=== PATIENT | female | born 1960 | race Caucasian/White ===

== ENCOUNTER 2020-09-27 20:24 | Emergency (ER) | payer OTHER ==
[2020-09-27] MEDS ORDERED: PRAVACHOL 20MG20 MG PO (20:48)
[2020-09-27 22:00] VITALS: BP 120/74
== END 2020-09-27 22:02 | disposition home or self-care (01) ==
LOC: ED 20:24
DX: S61.211A Laceration without foreign body of left index finger without damage to nail, initial encounter (principal); W26.0XXA Contact with knife, initial encounter; Y92.009 Unspecified place in unspecified non-institutional (private) residence as the place of occurrence of the external cause
CPT/HCPCS: 90715

== ENCOUNTER → 2020-12-22 | Outpatient (CLI) | payer OTHER ==
[~2020-12-22] MED LIST: PRAVACHOL 20MG20 MG PO
[2020-12-22 08:01] LABS: BASO # 0.02 (0.02-0.10); EOS # 0.19 (0.04-0.40); EOS % 3.2 % (1.0-5.0); HEMATOCRIT 41.3 % (37.0-47.0); HEMOGLOBIN 13.5 g/dL (12.5-16.0); MEAN CELL VOLUME 91 fl (78-100); MEAN CORPUSCULAR HEMOGLOBIN 30 pg (27-31); MEAN CORPUSCULAR HGB CONC 33 g/dL (33-37); MEAN PLATELET VOLUME 9.7 fl (7.4-10.4); MONO # 0.54 (0.20-0.80); NEU # 2.41 (1.40-6.50); PLATELET COUNT 226 K/mm3 (130-400); RED BLOOD COUNT 4.53 M/mm3 (4.10-5.30)
[2020-12-22 10:11] LABS: POTASSIUM 4.4 mmol/L (3.5-5.1)
[2020-12-22 10:12] LABS: ALBUMIN 4.1 g/dL (3.4-4.8)
[2020-12-22 10:13] LABS: CALCIUM 9.7 mg/dL (8.3-10.5)
[2020-12-22 10:14] LABS: TOTAL PROTEIN 7.1 g/dL (6.2-8.1)
[2020-12-22 10:16] LABS: TOTAL BILIRUBIN 0.7 mg/dL (0.2-1.2)
== END ==
LOC: LAB 06:21
PROVIDERS: Physician Assistant
DX: Z00.00 Encounter for general adult medical examination without abnormal findings (principal); E78.5 Hyperlipidemia, unspecified

== ENCOUNTER → 2021-10-11 | Outpatient (CLI) | payer OTHER | LOC: MAMMO 12:44 | DX: Z12.31 Encounter for screening mammogram for malignant neoplasm of breast (principal) ==

== ENCOUNTER → 2023-05-09 | Outpatient (CLI) | payer OTHER | LOC: LAB 17:44 | DX: N30.01 Acute cystitis with hematuria (principal) ==

== ENCOUNTER → 2023-05-16 | Outpatient (CLI) | payer OTHER ==
[2023-05-16 06:01] LABS: BASO # 0.03 K/mm3 (0.02-0.10); EOS # 0.26 K/mm3 (0.04-0.40); EOS % 4.4 % (1.0-5.0); HEMATOCRIT 38.1 % (37.0-47.0); HEMOGLOBIN 12.6 g/dL (12.5-16.0); MEAN CELL VOLUME 90 fl (78-100); MEAN CORPUSCULAR HEMOGLOBIN 30 pg (27-31); MEAN CORPUSCULAR HGB CONC 33 g/dL (33-37); MEAN PLATELET VOLUME 9.1 fl (7.4-10.4); MONO # 0.59 K/mm3 (0.20-0.80); NEU # 2.69 K/mm3 (1.40-6.50); PLATELET COUNT 199 K/mm3 (130-400); RED BLOOD COUNT 4.24 M/mm3 (4.10-5.30); RED CELL DISTRIBUTION WIDTH 12.8 % (11.5-14.5); WHITE BLOOD COUNT 5.9 K/mm3 (4.8-10.8)
[2023-05-16 06:05] LABS: ALBUMIN 4.2 g/dL (3.4-4.8)
[2023-05-16 06:06] LABS: CALCIUM 9.4 mg/dL (8.3-10.5)
[2023-05-16 06:07] LABS: TOTAL PROTEIN 6.8 g/dL (6.2-8.1)
[2023-05-16 06:09] LABS: TOTAL BILIRUBIN 0.4 mg/dL (0.2-1.2)
== END ==
LOC: LAB 05:45
PROVIDERS: Physician Assistant
DX: Z00.00 Encounter for general adult medical examination without abnormal findings (principal); R94.4 Abnormal results of kidney function studies

== ENCOUNTER → 2023-07-18 | Outpatient (CLI) | payer OTHER ==
[2023-07-18 17:05] LABS: PH-URINE 5.5 (5.0 - 8.0); URINE APPEARANCE CLOUDY (CLEAR); URINE BILIRUBIN NEGATIVE (NEGATIVE); URINE BLOOD NEGATIVE (NEGATIVE); URINE COLOR YELLOW (YELLOW); URINE GLUCOSE NEGATIVE (NEGATIVE); URINE KETONE NEGATIVE (NEGATIVE); URINE LEUKOCYTE ESTERASE NEGATIVE (NEGATIVE); URINE NITRATE NEGATIVE (NEGATIVE); URINE PROTEIN(semi-quant) NEGATIVE (NEGATIVE)
[2023-07-18 17:06] LABS: URINE MUCUS PRESENT (NOT PRESENT)
== END ==
LOC: LAB 16:28
PROVIDERS: Physician Assistant
DX: R31.9 Hematuria, unspecified (principal)

== ENCOUNTER → 2024-07-11 | Outpatient (CLI) | payer MEDICARE, OTHER ==
[2024-07-11 08:11] LABS: CALCIUM 9.5 mg/dL (8.3-10.5)
[2024-07-11 08:12] LABS: TOTAL PROTEIN 7.2 g/dL (6.2-8.1)
[2024-07-11 08:13] LABS: BASO # 0.03 K/mm3 (0.02-0.10); EOS # 0.08 K/mm3 (0.04-0.40); EOS % 2.1 % (1.0-5.0); HEMATOCRIT 38.9 % (37.0-47.0); HEMOGLOBIN 12.9 g/dL (12.5-16.0); LYMPH# 1.67 K/mm3 (1.50-4.00); MEAN CELL VOLUME 88 fl (78-100); MEAN CORPUSCULAR HEMOGLOBIN 29 pg (27-31); MEAN CORPUSCULAR HGB CONC 33 g/dL (33-37); MEAN PLATELET VOLUME 8.8 fl (7.4-10.4); MONO # 0.37 K/mm3 (0.20-0.80); NEU # 1.61 K/mm3 (1.40-6.50); PLATELET COUNT 182 K/mm3 (130-400); RED BLOOD COUNT 4.42 M/mm3 (4.10-5.30); WHITE BLOOD COUNT 3.8 K/mm3 (4.8-10.8)
[2024-07-11 08:14] LABS: TOTAL BILIRUBIN 0.5 mg/dL (0.2-1.2)
== END ==
LOC: LAB 07:47
PROVIDERS: Physician Assistant
DX: Z13.0 Encounter for screening for diseases of the blood and blood-forming organs and certain disorders involving the immune mechanism (principal); E78.2 Mixed hyperlipidemia